=== PATIENT | male | born 1955 | race Caucasian/White ===

== ENCOUNTER 2018-08-27 03:58 | Emergency (ER) | payer BC, OTHER ==
[2018-08-27] MEDS ORDERED: DIAZEPAM 5 MG TABLET PO ONE (04:13)
[2018-08-27] MEDS ORDERED: KETOROLAC 60 MG/2 ML VIAL IM STA (04:14)
--- NOTE | 2018-08-27 04:20 | Emergency Department Record ---
History of Present Illness - General Chief Complaint: Back Pain/Injury Stated Complaint: BACK PAIN Time Seen by Provider: 08/27/18 04:12 Source: Patient Mode of Arrival: Ambulatory Limitations: No limitations - History of Present Illness Initial Comments: 63 yo male presents to ED for evaluation of left sided neck pain that radiates to the left shoulder and down to the elbow region. Patient denies chest discomfort or difficulty in breathing symptoms, and reports that his pain symptoms worsen with head movement to the left. Patient denies weakness of the upper extremity. Patient does report taking Ibuprofen 4 hours ago that has not significantly improved his symptoms. MD Complaint: Other (neck pain) Onset/Timin -: Hour(s) Similar Symptoms Previously: Yes Place: Home Radiation: Other Severity: Severe Severity scale (1-10): 9 Quality: Sharp, Stabbing, Tingling Consistency: Constant, Getting worse Improves With: Sitting upright Worsens With: Other Context: Other Associated Symptoms: Weakness - Related Data Home Medications Medication Instructions Recorded Confirmed Last Taken Acetaminophen [Tylenol Extra 1,500 mg PO DAILY 08/27/18 08/27/18 08/26/18 Strength] Previous Rx's Medication Instructions Recorded Diazepam [Valium] 10 mg PO Q8H PRN #15 tab 08/27/18 Allergies Allergy/AdvReac Type Severity Reaction Status Date / Time No Known Drug Allergies Allergy Verified 08/27/18 04:14 Travel Screening - Travel/Exposure Within Last 30 Days Have you traveled within the last 30 days?: No - Travel Symptoms Symptom Screening: None Review of Systems Constitutional: Denies: Chills, Fever, Malaise, Night sweats Eyes: Denies: Eye discharge, Eye pain ENT: Denies: Congestion, Ear pain, Epistaxis Respiratory: Denies: Cough, Dyspnea Cardiovascular: Denies: Chest pain, Dyspnea on exertion Endocrine: Denies: Fatigue, Heat or cold intolerance Gastrointestinal: Denies: Abdominal pain, Nausea, Vomiting Genitourinary: Denies: Incontinence, Retention Musculoskeletal: Reports: Arthralgia, Neck pain. Denies: Back pain, Gout, Joint swelling Skin: Denies: Bruising, Change in color Neurological: Denies: Abnormal gait, Confusion, Headache, Seizure Psychiatric: Denies: Anxiety Hematological/Lymphatic: Denies: Anemia, Blood Clots Past Medical History - SOCIAL HISTORY Smoking Status: Current some day smoker Alcohol Use: None Drug Use: None - RESPIRATORY Hx Respiratory Disorders: No - CARDIOVASCULAR Hx Cardio Disorders: Yes Comment:: MURMUR - NEURO Hx Neuro Disorders: No - GI Hx GI Disorders: No - Hx Genitourinary Disorders: No - ENDOCRINE Hx Endocrine Disorders: No - MUSCULOSKELETAL Hx Musculoskeletal Disorders: Yes Hx Arthritis: Yes - PSYCH Hx Psych Problems: No - HEMATOLOGY/ONCOLOGY Hx Hematology/Oncology Disorders: No Family Medical History Any Significant Family History?: Yes Hx Cancer: Father Physical Exam - General General Appearance: Alert, Oriented x3, Cooperative, Mild distress Limitations: No limitations - Head Head exam: Atraumatic, Normocephalic, Normal inspection Head exam detail: negative: Abrasion, Contusion, Hernandez's sign, General tenderness, Hematoma, Laceration - Eye Eye exam: Normal appearance. negative: Conjunctival injection, Periorbital swelling, Periorbital tenderness, Scleral icterus - ENT Ear exam: negative: Auricular hematoma, Auricular trauma Nasal Exam: negative: Active bleeding, Discharge, Dried blood, Foreign body Mouth exam: negative: Drooling, Laceration, Muffled voice, Tongue elevation - Neck Neck exam: negative: Meningismus, Tenderness - Respiratory Respiratory exam: Normal lung sounds bilaterally. negative: Rales, Respiratory distress, Rhonchi - Cardiovascular Cardiovascular Exam: Regular rate, Normal rhythm, Normal heart sounds - GI/Abdominal GI/Abdominal exam: Soft. negative: Rebound, Rigid, Tenderness - Rectal Rectal exam: Deferred - exam: Deferred - Extremities Extremities exam: Normal inspection. negative: Calf tenderness, Pedal edema, Tenderness - Back Back exam: Denies: CVA tenderness (R), CVA tenderness (L) - Neurological Neurological exam: Alert, Normal gait, Oriented X3 - Psychiatric Psychiatric exam: Normal affect, Normal mood - Skin Skin exam: Normal color. negative: Abrasion Type of lesion: negative: abrasion Course Vital Signs 08/27/18 04:02 Temperature 97.3 F L Pulse Rate 72 Respiratory 16 Rate Blood Pressure 142/108 Pulse Ox 98 - Reevaluation(s) Reevaluation #1: 08/27/18 04:29 EKG: NSR 67 LAD, normal intervals No acute ST-T wave changes are present on examination. Reevaluation #2: 08/27/18 04:56 CT Cervical Spine: Degenerative changes, nothing acute. Reevaluation #3: 08/27/18 05:01 Patient was updated on all results, patient is now dressed, walking around the room, reports that his pain symptoms are improved. Patient appears stable for discharge at this time with Valium as needed. Disposition Disposition: Discharge Clinical Impression: Neck pain Disposition: Home, Self-Care Condition: (2) Stable Instructions: Acute Neck Pain (ED) Additional Instructions: Return to ED if your symptoms worsen or if you have any concerns. Valium as directed. Follow-up with your family doctor in 3-5 days as directed. Prescriptions: Diazepam [Valium] 10 mg PO Q8H PRN #15 tab PRN Reason: Pain - Moderate (5-7) Forms: Patient Portal Access Time of Disposition: 05:03 Quality - Quality Measures Quality Measures: N/A - Blood Pressure Screening Does Patient Have Any of the Following: No Blood Pressure Classification: Hypertensive Reading Systolic Measurement: 142 Diastolic Measurement: 108 Screening for High Blood Pressure: < First Hypertensive BP, F/U Documented > [ [id number]] First Hypertensive Follow-up Interventions: Referral to alternative/primary care provider.
--- NOTE | 2018-08-28 13:16 | CT SCAN REPORT ---
EXAM: NONCONTRAST CT OF THE CERVICAL SPINE HISTORY: NECK PAIN RADIATING INTO LEFT ARM. TECHNIQUE: Routine noncontrast CT of the cervical spine was obtained. Comparison: None. FINDINGS: No acute fracture detected. No evidence of dislocation. The prevertebral soft tissues are within normal limits. Extensive cervical spine degenerative changes with significant disk space height loss and corresponding end plate sclerosis/osteophytes extending from the C2 through C7 levels. The findings include anterior and posterior end plate osteophytes and bilateral facet arthrosis. Suggestion of central spinal canal narrowing at C3-C4, C4-C5, C5-C6 and C7-T1. Significant areas of neural foraminal stenosis as follows: Bilaterally at C3-C4, greater on the right; bilaterally at C4-C5, bilaterally at C5-C6, and on the left at C7-T1. The visualized lung apices are clear. IMPRESSION: 1. NO EVIDENCE OF ACUTE CERVICAL SPINE FRACTURE OR DISLOCATION. 2. 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 JOB NUMBER: [id number] [facility]
== END 2018-08-27 05:13 | disposition home or self-care (01) ==
LOC: ER 03:58
DX: M54.2 Cervicalgia (principal); M25.512 Pain in left shoulder; R53.1 Weakness; F17.210 Nicotine dependence, cigarettes, uncomplicated
CPT/HCPCS: 99284 ×2; 96372; 72125; 93005; 93010; J3490; J1885